=== PATIENT | female | born 1990 | race Two or more races ===

== ENCOUNTER 2017-01-18 13:02 | Emergency (ER) | payer MEDICAID, OTHER ==
[~2017-01-18] VITALS: Ht 162.6 cm; Wt 147.4 kg
[2017-01-18 14:27] VITALS: BP 152/99
[2017-01-18] MEDS ORDERED: KETOROLAC TROMETH 60MG/2ML VIAL IM ONE (14:30)
== END 2017-01-18 15:44 | disposition home or self-care (01) ==
LOC: ER 13:02
DX: S93.401A Sprain of unspecified ligament of right ankle, initial encounter (principal); W19.XXXA Unspecified fall, initial encounter; Y93.89 Activity, other specified; Y92.89 Other specified places as the place of occurrence of the external cause; Y99.8 Other external cause status
CPT/HCPCS: 73080; 73610; 96372; 99284; J1885